=== PATIENT | male | born 1945 | race Caucasian/White ===

== ENCOUNTER 2017-02-19 09:40 | Emergency (ER) | payer MEDICARE ==
--- NOTE | 2017-02-19 09:43 | ED ---
Upper Extremity Pain - HPI Summary HPI Summary: 71 YEAR OLD MALE PRESNTS WITH COMPLAINS OF LEFT ELBOW AND WRIST PAIN. - History of Current Complaint Stated Complaint: S/P FALL-LFT WRIST/ARM PAIN Time Seen by Provider: 02/19/17 09:43 - Allergies/Home Medications Allergies/Adverse Reactions: Allergies Allergy/AdvReac Type Severity Reaction Status Date / Time Penicillins Allergy Severe Swelling Verified 02/19/17 10:16 Of Face,Lips,& Throat Home Medications: Home Medications Aspirin [Aspirin 81 MG TAB] 81 mg PO DAILY 02/19/17 [History Confirmed 02/19/17] Bisoprolol Fumarate [Bisoprolol Fumarate-] 5 mg PO DAILY 02/19/17 [History Confirmed 02/19/17] Cetirizine HCl [All Day Allergy] 10 mg PO 02/19/17 [History] Clopidogrel TAB* [Plavix TAB*] 75 mg PO DAILY 02/19/17 [History Confirmed ] Coenzyme Q10 (Ubidecarenone) [Co Q-10] 300 mg PO 02/19/17 [History] Montelukast Sodium TAB* [Singulair TAB*] 10 mg PO DAILY 02/19/17 [History Confirmed 02/19/17] [place]-3 Fatty Acids [Fish Oil 500 mg] 1 cap PO BID 02/19/17 [History Confirmed 02/19/17] Simvastatin [Zocor 40 MG (NF)] 40 mg PO QPM 02/19/17 [History Confirmed 02/19/17 ] PMH/Surg Hx/FS Hx/Imm Hx Previously Healthy: Yes Review of Systems Constitutional: Negative Eyes: Negative ENT: Negative Cardiovascular: Negative Gastrointestinal: Negative Positive: Arthralgia, Myalgia, Other - LEFT ELBOW/WRIST PAIN All Other Systems Reviewed And Are Negative: Yes Physical Exam Triage Information Reviewed: Yes Vital Signs Reviewed: Yes Skin: Positive: Warm Eyes: Positive: Normal ENT: Positive: Normal ENT inspection Cardiovascular: Positive: Normal Abdomen Description: Positive: Nontender Musculoskeletal: Positive: Other - LEFT WRIST PAIN LEFT ELBOW PAIN Course/Dx - Diagnoses Provider Diagnoses: Left lunate fracture, Elbow contusion Discharge - Discharge Plan Condition: Stable Disposition: HOME Prescriptions: Meloxicam(NF) [Mobic(NF)] 7.5 mg PO BID #30 tab Patient Education Materials: Wrist Injury (ED) Referrals: Errol Dupont MD [Medical Doctor] -
--- NOTE | 2017-02-19 10:07 | RAD ---
Indication: Left wrist injury 3 views of the wrist demonstrates question of a fracture of the dorsal aspect of the lunate. This may represent a small avulsion. The radius and ulna are grossly intact. IMPRESSION: Suggestion of an avulsion fracture off the dorsal aspect of the lunate.
--- NOTE | 2017-02-19 10:08 | RAD ---
Indication: Fall, left elbow injury 4 views of left elbow demonstrates no fracture. No other bone or joint abnormality is identified. IMPRESSION: No fracture of the left elbow is noted.
[2017-02-19 10:15] VITALS: BP 135/75
== END 2017-02-19 10:39 | disposition home or self-care (01) ==
LOC: UCCORT 09:40
DX: S62.122A Displaced fracture of lunate [semilunar], left wrist, initial encounter for closed fracture (principal); S50.02XA Contusion of left elbow, initial encounter; W18.30XA Fall on same level, unspecified, initial encounter; Y92.9 Unspecified place or not applicable; Z88.0 Allergy status to penicillin; Z79.82 Long term (current) use of aspirin; Z79.02 Long term (current) use of antithrombotics/antiplatelets
CPT/HCPCS: 99202; G0463

== ENCOUNTER 2017-03-11 08:52 | Emergency (ER) | payer MEDICARE ==
[2017-03-11 11:17] VITALS: BP 138/69
--- NOTE | 2017-03-11 11:17 | RAD ---
INDICATION: Right elbow injury COMPARISON: None TECHNIQUE: AP, lateral, and oblique views were obtained. FINDINGS: There are no acute bony findings. There is traction spurring from the olecranon. The elbow articulates normally. The soft tissues are normal. IMPRESSION: NO ACUTE BONY FINDINGS.
--- NOTE | 2017-03-11 11:53 | UC ---
Elbow Pain - HPI Summary HPI Summary: ONE MONTH AGO FELL FROM TRUCK; OVER LAST WEEK WAS HAD WORSENING FOREARM PAIN, NEAR THE ELBOW. HAD BEEN DRIVING BUS, FORE ARM PAIN WORSENING. NO BRUISING SWELLING REDNESS OR FEVER. PLAYS GOLF A HOBBY. - History of Current Complaint Chief Complaint: UCUpperExtremity Stated Complaint: RIGHT ARM PAIN Time Seen by Provider: 03/11/17 10:29 Hx Obtained From: Patient Onset/Duration: Weeks, Still Present Severity Initially: Mild Severity Currently: Moderate Location Of Pain: Is Discrete @ - RIGHT DORSAL FOREARM Character: Dull, Aching, Spasmodic Aggravating Factor(s): Movement Associated Signs And Symptoms: Positive: Negative - Allergies/Home Medications Allergies/Adverse Reactions: Allergies Allergy/AdvReac Type Severity Reaction Status Date / Time Penicillins Allergy Severe Swelling Verified 03/11/17 09:21 Of Face,Lips,& Throat Home Medications: Home Medications Omeprazole CAP* [Prilosec CAP* 20 MG] 20 mg PO DAILY 03/11/17 [History Confirmed 03/11/17] PMH/Surg Hx/FS Hx/Imm Hx Previously Healthy: Yes - Surgical History Surgical History: Yes Surgery Procedure, Year, and Place: cardiac stents x 4 - Family History Known Family History: Negative: Other - NO JOINT LAXITY - Social History Occupation: Employed Full-time Lives: With Family Alcohol Use: Occasionally Substance Use Type: None Smoking Status (MU): Never Smoked Tobacco Review of Systems Constitutional: Negative Skin: Negative Eyes: Negative ENT: Negative Respiratory: Negative Cardiovascular: Negative Gastrointestinal: Negative Genitourinary: Negative Motor: Negative Neurovascular: Negative Musculoskeletal: Arthralgia, Myalgia Neurological: Negative Psychological: Negative All Other Systems Reviewed And Are Negative: Yes Physical Exam Triage Information Reviewed: Yes Appearance: Well-Appearing, No Pain Distress, Well-Nourished Vital Signs: Initial Vital Signs Temp 98.5 F 03/11/17 09:24 Pulse 64 03/11/17 09:24 Resp 16 03/11/17 09:24 BP 162/79 03/11/17 09:24 Pulse Ox 98 03/11/17 09:24 Vital Signs Reviewed: Yes Eye Exam: Normal ENT Exam: Normal Dental Exam: Normal Neck exam: Normal Respiratory Exam: Normal Respiratory: Positive: Chest non-tender, Lungs clear, Normal breath sounds, No respiratory distress Cardiovascular Exam: Normal Cardiovascular: Positive: RRR, No Murmur Abdominal Exam: Normal Musculoskeletal: Positive: Strength Intact, ROM Intact, No Edema, Other: - TENDERNESS OF PROXIMAL DORSAL FOREARM TO PALPATION, PAIN WITH EXTENSION OF WRIST. Neurological Exam: Normal Psychological Exam: Normal Skin Exam: Normal Elbow Pain Course/Dx - Differential Dx/Diagnosis Differential Diagnosis/HQI/PQRI: Sprain, Strain, Other - TENIS ELBOW; GOLFERS ELBOW Provider Diagnoses: RIGHT ELBOW TENDINTITS Discharge - Discharge Plan Condition: Stable Disposition: HOME Patient Education Materials: Tendinitis (ED) Forms: *Work Release Referrals: Burt Friend MD [Medical Doctor] - KEVIN Jsohua [Primary Care Provider] - Additional Instructions: PHYSICAL THERAPY REFERRAL: You have been prescribed physical therapy. Treatments may include stretching, exercise, application of heat or cold, and other modalities. After an injury, PT can reduce swelling and pain. In recovery, PT is used to restore mobility and strength. Your specific treatment goals are: ___X__ Reduction of Swelling (EGS, US, ice as needed) _X____ Pain Reduction (EGS, US, ice as needed) TENS Pack Fitting and Instruction Wound Hydrotherapy ___X__ Preservation of Mobility __X___ Adventist of Mobility ___X__ Strength Adventist __X___ Work or Sports Hardening This instruction sheet also serves as your PHYSICAL THERAPY REFERRAL! Please take it with you to the therapist, so he/she will be aware of your diagnosis and treatment plan. You may see the physical therapist of your choice for these treatments, but may wish to check with your insurance to be sure the provider you select is covered. It's important to see the doctor to whom you have been referred for follow up.
== END 2017-03-11 11:50 | disposition home or self-care (01) ==
LOC: UCCORT 08:52
DX: M77.9 Enthesopathy, unspecified (principal); M79.631 Pain in right forearm; Z95.5 Presence of coronary angioplasty implant and graft; Z88.0 Allergy status to penicillin
CPT/HCPCS: 99212; G0463

== ENCOUNTER 2019-06-05 11:49 | Emergency (ER) | payer MEDICARE ==
[2019-06-05 12:32] VITALS: BP 127/60
--- NOTE | 2019-06-05 13:24 | UC ---
Respiratory Complaint HPI - HPI Summary HPI Summary: 73-year-old male whose had a cough for one week. He has a history of pneumonia and was concerned that possibly had pneumonia. Denies any fever or chills. - History of Current Complaint Chief Complaint: UCRespiratory Stated Complaint: CONGESTION,COUGH Time Seen by Provider: 06/05/19 12:43 Hx Obtained From: Patient Onset/Duration: Gradual Onset Timing: Intermittent Episodes Severity Initially: Mild Severity Currently: Mild Pain Intensity: 0 Character: Cough: Productive - Mildly productive of whitish sputum. Aggravating Factors: Nothing Alleviating Factors: Nothing Associated Signs And Symptoms: Positive: Negative - Allergies/Home Medications Allergies/Adverse Reactions: Allergies Allergy/AdvReac Type Severity Reaction Status Date / Time Penicillins Allergy Swelling Verified 06/05/19 12:19 Of Face,Lips,& Throat Home Medications: Home Medications Albuterol HFA INHALER* [Ventolin HFA Inhaler*] 2 puff INH Q4H PRN 06/05/19 [ History Confirmed 06/05/19] Guaifen/Phenyleph/Acetaminophn [Mucinex Sinus-Max Severe] 1 tab PO PRN 06/05/19 [History] PMH/Surg Hx/FS Hx/Imm Hx Previously Healthy: Yes Cardiovascular History: Cardiac Disease, Hypertension GI/ History: Gastroesophageal Reflux - Surgical History Surgical History: Yes Surgery Procedure, Year, and Place: cardiac stents x 4. bowel resection - Family History Known Family History: Positive: Other - NO JOINT LAXITY, (+) FHx of colon CA, Non-Contributory - Social History Occupation: Retired Lives: With Family Alcohol Use: Rare Substance Use Type: None Smoking Status (MU): Former Smoker When Did the Patient Quit Smoking/Using Tobacco: 36 years ago Review of Systems All Other Systems Reviewed And Are Negative: Yes Respiratory: Positive: Cough - Occasional cough of whitish sputum. Is Patient Immunocompromised?: No Physical Exam Triage Information Reviewed: Yes Appearance: Well-Appearing, No Pain Distress, Well-Nourished Vital Signs: Initial Vital Signs Temp 98.3 F 06/05/19 12:21 Pulse 68 06/05/19 12:21 Resp 20 06/05/19 12:21 BP 127/60 06/05/19 12:21 Pulse Ox 95 06/05/19 12:21 Vital Signs Reviewed: Yes Eyes: Positive: Conjunctiva Clear ENT: Positive: Pharynx normal, TMs normal, Uvula midline Neck: Positive: Supple, Nontender, No Lymphadenopathy Respiratory: Positive: No respiratory distress, No accessory muscle use, Wheezing - Very mild expiratory wheeze with forced expiration. Cardiovascular: Positive: RRR, No Murmur, Pulses Normal, Brisk Capillary Refill Musculoskeletal Exam: Normal Neurological Exam: Normal Psychological Exam: Normal Skin Exam: Normal Respiratory Course/Dx - Course Course Of Treatment: Chest x-ray:Indication: Cough. 2 views of the chest including dual energy PA views demonstrate no mediastinal shift. Heart is of normal size and configuration. Lungs are clear. Overall no change is noted since previous exam of June 08, 2018. IMPRESSION: No active cardiopulmonary disease is noted. Patient has his own albuterol inhaler and he is to use that 2 puffs every 4 hours as needed for wheezing or tight cough. He is to follow-up with his primary care provider in approximately 4 days if no improvement. - Differential Dx/Diagnosis Provider Diagnosis: Bronchitis Discharge ED - Sign-Out/Discharge Documenting (check all that apply): Patient Departure All imaging exams completed and their final reports reviewed: Yes - Discharge Plan Condition: Good Disposition: HOME Patient Education Materials: Acute Bronchitis (ED) Referrals: Anupama Jacobs PA [Primary Care Provider] - Additional Instructions: You have very mild bronchitis and using your inhaler 2 puffs every 4 hours when needed should take care of that. Definite follow-up with your primary care provider in approximately 4 days if no improvement. - Billing Disposition and Condition Condition: GOOD Disposition: Home
== END 2019-06-05 14:00 | disposition home or self-care (01) ==
LOC: UCCORT 11:49
DX: J40 Bronchitis, not specified as acute or chronic (principal); I10 Essential (primary) hypertension; Z95.5 Presence of coronary angioplasty implant and graft; Z88.0 Allergy status to penicillin; Z87.891 Personal history of nicotine dependence
CPT/HCPCS: 71046; 99211; G0463

== ENCOUNTER 2019-09-21 09:52 | Emergency (ER) | payer MEDICARE ==
[2019-09-21 10:24] VITALS: BP 120/66
--- NOTE | 2019-09-21 10:39 | UC ---
Respiratory Complaint HPI - HPI Summary HPI Summary: 73yo male presenting with dry cough, nasal congestion, and intermittent fevers up to 101 x5 days. Patient states he has chest congestion that he has needed to use his inhaler for, but normally does not have to use his inhaler for weeks at a time. States fever goes away during the day. Denies n/v. Denies wheezing. Decreased appetite. Denies h/o asthma and COPD "but has always had trouble breathing at time." Former smoker 40 years ago. - History of Current Complaint Chief Complaint: UCRespiratory Stated Complaint: RESP Hx Obtained From: Patient Pain Intensity: 0 - Allergies/Home Medications Allergies/Adverse Reactions: Allergies Allergy/AdvReac Type Severity Reaction Status Date / Time Penicillins Allergy Swelling Verified 09/21/19 10:24 Of Face,Lips,& Throat Home Medications: Home Medications Aspirin [Aspirin 81 MG TAB] 81 mg PO DAILY 02/19/17 [History Confirmed 09/21/19] Bisoprolol Fumarate [Bisoprolol Fumarate-] 2.5 mg PO DAILY 02/19/17 [History Confirmed 09/21/19] Clopidogrel TAB* [Plavix TAB*] 75 mg PO DAILY 02/19/17 [History Confirmed ] Montelukast Sodium TAB* [Singulair TAB*] 10 mg PO DAILY 02/19/17 [History Confirmed 09/21/19] [place]-3/Dha/Epa/Fish Oil [Fish Oil 500 mg] 1 cap PO BID 02/19/17 [History Confirmed 09/21/19] Ubidecarenone [Co Q-10] 300 mg PO DAILY 02/19/17 [History Confirmed 09/21/19] Rosuvastatin Calcium [Crestor] 40 mg PO DAILY 03/23/19 [History Confirmed ] Albuterol HFA INHALER* [Ventolin HFA Inhaler*] 2 puff INH Q4H PRN 06/05/19 [ History Confirmed 09/21/19] guaiFENesin ER TAB [Mucinex*] 600 mg PO Q4H PRN 09/21/19 [History Confirmed ] PMH/Surg Hx/FS Hx/Imm Hx - Surgical History Surgical History: Yes Surgery Procedure, Year, and Place: cardiac stents x 4. bowel resection - Family History Known Family History: Positive: Other - NO JOINT LAXITY, (+) FHx of colon CA, Non-Contributory - Social History Alcohol Use: Rare Substance Use Type: None Smoking Status (MU): Former Smoker When Did the Patient Quit Smoking/Using Tobacco: 36 years ago Review of Systems All Other Systems Reviewed And Are Negative: Yes Constitutional: Positive: Fever, Fatigue ENT: Positive: Sinus Congestion Respiratory: Positive: Cough. Negative: Shortness Of Breath Cardiovascular: Positive: Negative Gastrointestinal: Positive: Negative Musculoskeletal: Positive: Negative Neurological/Mental Status: Positive: Negative Physical Exam - Summary Physical Exam Summary: Vital Signs Reviewed: Yes A+Ox3, no distress, well-appearing Eyes: Conjunctiva Clear ENT: Hearing grossly normal, TM x 2 clear, moist, uvula midline, no exudate, no erythema Neck: Positive: Supple Respiratory: Positive: No respiratory distress, No accessory muscle use + CTA throughout no w/r Cardiovascular: RRR nl s1, s2 no m/r Musculoskeletal Exam: ANN x 4 without difficulty Neurological: Positive: Alert Psychological: Positive: age appropriate behavior Skin: Positive: no rash, no ecchymosis Vital Signs: Initial Vital Signs Temp 99 F 09/21/19 10:15 Pulse 71 09/21/19 10:15 Resp 20 09/21/19 10:15 BP 120/66 09/21/19 10:15 Pulse Ox 97 09/21/19 10:15 Lab Results 09/21/19 Range/Units 11:04 Influenza A (Rapid) Positive H (Negative) Respiratory Course/Dx - Course Course Of Treatment: Rapid flu A positive. I educated on influenza and instructed to continue with symptomatic treatment. Instructed to go to ED for any new or worsening symptoms. Patient voiced understanding and agreed with treatment plan. - Differential Dx/Diagnosis Differential Diagnosis/HQI/PQRI: Asthma, Bronchitis, Influenza, Sinusitis Provider Diagnosis: Influenza A Discharge ED - Sign-Out/Discharge Documenting (check all that apply): Patient Departure All imaging exams completed and their final reports reviewed: No Studies - Discharge Plan Condition: Stable Disposition: HOME Patient Education Materials: Influenza (ED) Referrals: Anupama Jacobs PA [Primary Care Provider] - If Needed Additional Instructions: As discussed, you tested positive for influenza A today. You may continue to use your inahler and take mucinex for symptom relief. You may continue with motrin or tylenol for fever and pain relief. Get plenty of rest and increase your fluid intake. Follow up with your primary care provider if symptoms do not improve within 5-7 days. Go to the emergency room with any new or worsening symptoms. - Billing Disposition and Condition Condition: STABLE Disposition: Home - Attestation Statements Provider Attestation: This patient was not examined by me. I was available for consult. Chart reviewed. BRAYDEN
[2019-09-21 11:09] LABS: Influenza A Molecular POSITIVE (Negative)
== END 2019-09-21 11:20 | disposition home or self-care (01) ==
LOC: UCCORT 09:52
DX: J10.1 Influenza due to other identified influenza virus with other respiratory manifestations (principal); Z88.0 Allergy status to penicillin; Z79.82 Long term (current) use of aspirin; Z95.5 Presence of coronary angioplasty implant and graft; Z87.891 Personal history of nicotine dependence
CPT/HCPCS: 99211; G0463